=== PATIENT | male | born 1940 | race Caucasian/White ===

== ENCOUNTER 2016-12-09 15:37 | Inpatient (IN) | payer OTHER ==
[~2016-12-09] VITALS: Ht 167.6 cm; Wt 76.2 kg
[2016-12-09] MEDS ORDERED: AZITHROMYCIN 500 MG VIAL IV ONE (17:04)
[2016-12-09] MEDS ORDERED: CEFTRIAXONE 1 GM VIAL ONE (17:04)
[2016-12-09] MEDS ORDERED: SODIUM CHLORIDE 0.9% 250 ML IV ONE (17:05)
[2016-12-09] MEDS ORDERED: SODIUM CHLORIDE 0.9% 100 ML IV ONE (17:05)
[2016-12-09] MEDS ORDERED: SODIUM CHLORIDE 0.9% 1,000 ML ONE (17:05)
[2016-12-09] MEDS ORDERED: SALINE FLUSH 10 ML FLUSH PRN (17:40)
[2016-12-09] MEDS ORDERED: ACETAMINOPHEN 325 MG TAB PO PRN (17:40)
[2016-12-09] MEDS ORDERED: MAG HYDROX 30 ML UDC PO PRN (17:40)
[2016-12-09] MEDS ORDERED: ALU/MAG/SIM 30 ML UDC PO PRN (17:40)
[2016-12-09] MEDS ORDERED: BISACODYL 10 MG SUPP RECTAL PRN (17:40)
[2016-12-09] MEDS ORDERED: BISACODYL EC 5 MG TAB PO PRN (17:40)
[2016-12-09] MEDS ORDERED: SODIUM CHLORIDE 0.9% 1,000 ML IV SCH ×2 (17:40→17:50)
[2016-12-09] MEDS: DUONEB INH SCH ×2 (18:18→22:56)
[2016-12-09 18:19] VITALS: RESP 18
[2016-12-09] MEDS ORDERED: GLUCAGON 1 MG VIAL IM PRN (18:30)
[2016-12-09] MEDS ORDERED: DEXTROSE 50% SYRINGE 50 ML IV PRN (18:30)
[2016-12-09] MEDS ORDERED: **NOTE TO NURSE XX SCH (18:45)
[2016-12-09 18:49] VITALS: BP_SYST 110; BP_SYST 117; RESP 18; TEMP 97.5
[2016-12-09 18:52] VITALS: Ht 167.6 cm; Wt 76.2 kg
[2016-12-09] MEDS: ENOXAPARIN 30 MG/0.3 ML SYR SUBQ SCH (20:40)
[2016-12-09] MEDS: SALINE FLUSH 10 ML FLUSH SCH (20:40)
[2016-12-09] MEDS: FAMOTIDINE 20 MG TAB PO SCH (20:40)
[2016-12-09] MEDS: PRAVASTATIN 40 MG TAB PO SCH (21:15)
[2016-12-10 00:58] VITALS: BP_SYST 115; RESP 16; TEMP 98.4
[2016-12-10] MEDS: DUONEB INH SCH ×6 (03:00→22:32)
[2016-12-10] MEDS: SODIUM CHLORIDE 0.9% FLUSH BAG 500 ML IV SCH (06:00)
[2016-12-10 07:33] VITALS: BP_SYST 123; RESP 16; TEMP 97.7
[2016-12-10] MEDS: SALINE FLUSH 10 ML FLUSH SCH ×2 (08:57→21:07)
[2016-12-10] MEDS: ASPIRIN EC 81 MG TAB PO SCH (08:57)
[2016-12-10] MEDS: CLOPIDOGREL 75 MG TAB PO SCH (08:58)
[2016-12-10] MEDS: CYANOCOBA 500 MCG TAB PO SCH (08:58)
[2016-12-10] MEDS: CHOLECALCIFEROL 1,000 UNITS TAB PO SCH (08:58)
[2016-12-10] MEDS: FAMOTIDINE 20 MG TAB PO SCH ×2 (08:58→21:07)
[2016-12-10] MEDS: ENOXAPARIN 30 MG/0.3 ML SYR SUBQ SCH (08:59)
[2016-12-10] MEDS ORDERED: NITROGLYCERIN SL 0.4 MG TAB SL PRN (09:10)
[2016-12-10] MEDS: SOTALOL HCL 80 MG TAB PO SCH ×2 (10:40→21:07)
[2016-12-10 11:13] VITALS: BP_SYST 144; RESP 16; TEMP 98.2
[2016-12-10 16:11] VITALS: BP_SYST 159; RESP 16; TEMP 98.3
[2016-12-10] MEDS: CEFTRIAXONE 1 GM in SODIUM CHLORIDE 0.9% 50 ML IV SCH (16:40)
[2016-12-10] MEDS ORDERED: AZITHROMYCIN 500 MG in SODIUM CHLORIDE 0.9% 250 ML IV SCH (17:00)
[2016-12-10] MEDS: SODIUM CHLORIDE 0.9% 1,000 ML IV SCH (18:45)
[2016-12-10 19:45] VITALS: BP_SYST 137; RESP 16; TEMP 98.1
[2016-12-10] MEDS: PRAVASTATIN 40 MG TAB PO SCH (21:07)
[2016-12-10 23:42] VITALS: BP_SYST 134; RESP 16; TEMP 98.4
[2016-12-11] MEDS: DUONEB INH SCH ×2 (02:42→07:04)
[2016-12-11 04:02] VITALS: BP_SYST 136; RESP 16; TEMP 98
[2016-12-11] MEDS: SODIUM CHLORIDE 0.9% FLUSH BAG 500 ML IV SCH (05:37)
[2016-12-11] MEDS: SODIUM CHLORIDE 0.9% 1,000 ML IV SCH (05:38)
[2016-12-11 07:28] VITALS: BP_SYST 135; RESP 16; TEMP 97.7
[2016-12-11] MEDS: FAMOTIDINE 20 MG TAB PO SCH (08:37)
[2016-12-11] MEDS: CYANOCOBA 500 MCG TAB PO SCH (08:37)
[2016-12-11] MEDS: SOTALOL HCL 80 MG TAB PO SCH (08:37)
[2016-12-11] MEDS: ASPIRIN EC 81 MG TAB PO SCH (08:37)
[2016-12-11] MEDS: CHOLECALCIFEROL 1,000 UNITS TAB PO SCH (08:37)
[2016-12-11] MEDS: CEFTRIAXONE 1 GM in SODIUM CHLORIDE 0.9% 50 ML IV SCH (08:38)
[2016-12-11] MEDS: SALINE FLUSH 10 ML FLUSH SCH (08:38)
[2016-12-11] MEDS: CLOPIDOGREL 75 MG TAB PO SCH (08:38)
[2016-12-11 10:30] VITALS: BP_SYST 152; RESP 16; TEMP 99
[2016-12-11 11:31] VITALS: BP_SYST 135; RESP 16; TEMP 97.7
== END 2016-12-11 11:59 | disposition home or self-care (01) | DRG 92 ==
LOC: ENRESERVDT → ENRESERVTM → ER 15:37 → EMR 17:37 → ENPENDDIS 17:37 → 4THE 18:42
PROVIDERS: ADMIT Family Medicine; ATTEND Family Medicine
DX: G92 Toxic encephalopathy (principal); N17.9 Acute kidney failure, unspecified; E11.22 Type 2 diabetes mellitus with diabetic chronic kidney disease; I95.2 Hypotension due to drugs; E87.5 Hyperkalemia; T46.3X5A Adverse effect of coronary vasodilators, initial encounter; I12.9 Hypertensive chronic kidney disease with stage 1 through stage 4 chronic kidney disease, or unspecified chronic kidney disease; N18.9 Chronic kidney disease, unspecified; Z79.84 Long term (current) use of oral hypoglycemic drugs; I25.10 Atherosclerotic heart disease of native coronary artery without angina pectoris; Z95.1 Presence of aortocoronary bypass graft; Z95.5 Presence of coronary angioplasty implant and graft; E78.5 Hyperlipidemia, unspecified; Z79.82 Long term (current) use of aspirin
CPT/HCPCS: 36415; 71010; 71020; 80048; 80053; 80307; 81001; 82553; 82947; 83605; 83735; 83880; 84484; 85025; 85610; 85730; 87040; 87088; 93005; 93306; 94640; 94799; 96361; 96374; 99223; 99233; 99239